=== PATIENT | male | born 1970 | race American Indian/Alaskan Native ===

== ENCOUNTER 2017-03-30 00:15 | Emergency (ER) | payer BC ==
[2017-03-30 00:34] VITALS: TEMP 98.9; O2SAT 98
[2017-03-30 01:09] LABS: BASO % 0.7 % (0.0-2.0); EOS # 0.1 K/uL (0.0-0.7); EOS % 2.1 % (0.0-4.0); HEMATOCRIT 41.8 % (35.0-51.0); LYMPH % 46.7 % (20.0-40.0); MEAN CELL VOLUME 87.7 fl (80.0-94.0); MEAN CORPUSCULAR HEMOGLOBIN 28.1 pg (27.0-31.0); MEAN CORPUSCULAR HGB CONC 32.1 g/dL (33.0-37.0); MEAN PLATELET VOLUME 8.6 fl (7.2-11.7); MONO # 0.7 K/uL (0.0-0.8); MONO % 10.2 % (0.0-10.0); NEUT # 2.6 K/uL (1.8-7.0); NEUT % 40.3 % (50.0-75.0); RED CELL DISTRIBUTION WIDTH 15.3 % (11.5-14.5); WHITE BLOOD COUNT 6.4 K/uL (4.8-10.8)
[2017-03-30 01:21] LABS: ALB/GLOB RATIO 1.3 (1.0-2.1); ALKALINE PHOSPHATASE 68 U/L (38-126); ALT/SGPT 63 U/L (21-72); AST/SGOT 39 U/L (17-59); BILIRUBIN,TOTAL 0.3 mg/dl (0.2-1.3); BLOOD UREA NITROGEN 21 mg/dl (9-20); CALCIUM 8.7 mg/dL (8.4-10.2); CARBON DIOXIDE 26 mmol/L (22-30); CHLORIDE 107 mmol/L (98-107); GFR AFRICAN-AMERICAN > 60; GLUCOSE,RANDOM 96 mg/dL (75-110); PARTIAL THROMBOPLASTIN TIME 38.4 Seconds (25.6-37.1); SODIUM 142 mmol/l (132-148); TOTAL PROTEIN 7.5 G/DL (6.3-8.2)
--- NOTE | 2017-03-30 01:54 | ED PDOC ---
HPI: Chest Pain Time Seen by Provider: 03/30/17 00:42 Chief Complaint (Nursing): Chest Pain Chief Complaint (Provider): Chest Pain History Per: Patient History/Exam Limitations: no limitations Onset/Duration Of Symptoms: Mins (x30 [employer] ME[employer]) Current Symptoms Are (Timing): Still Present Additional Complaint(s): Damian Hurtado is a 46 y/o male with a past medical history of asthma and HTN who presents to the ED complaining of chest pain and shortness of breath x30 minutes [employer]. Patient is currently also being treated for corneal abrasions. Patient states symptoms occurred while walking to his office from his vehicle. Patient reports feeling a sudden sensation of chest tightness. States symptoms lasted 30 minutes then resolved. Denies associated nausea, vomiting, or diaphoresis. PMD: Non-[facility] Provider Past Medical History Reviewed: Historical Data, Nursing Documentation, Vital Signs Vital Signs: Last Vital Signs Temp 98.9 F 03/30/17 00:32 Pulse 90 03/30/17 00:32 Resp 20 03/30/17 00:32 BP 195/120 H 03/30/17 00:32 Pulse Ox 98 03/30/17 02:41 - Medical History PMH: Asthma, HTN - Surgical History Surgical History: No Surg Hx - Family History Family History: States: Unknown Family Hx - Social History Current smoker - smoking cessation education provided: No Alcohol: None Drugs: Denies - Home Medications Home Medications: Ambulatory Orders Medication Instructions Recorded Methylprednisolone [Medrol Dose 4 mg PO DAILY #21 mg 08/04/14 Pack (21 tabs)] Naproxen 375 mg PO Q8 PRN #21 tab 01/27/15 diaZEpam [Valium] 5 mg PO Q8 PRN #10 tab 01/27/15 oxyCODONE/Acetaminophen [Percocet 1 ea PO Q6 PRN #8 tab 01/27/15 5/325 mg Tab] - Allergies Allergies/Adverse Reactions: Allergies Allergy/AdvReac Type Severity Reaction Status Date / Time No Known Allergies Allergy Verified 01/27/15 02:16 Review of Systems ROS Statement: Except As Marked, All Systems Reviewed And Found Negative Constitutional: Negative for: Sweats Cardiovascular: Positive for: Chest Pain Respiratory: Positive for: Shortness of Breath Gastrointestinal: Negative for: Nausea, Vomiting Physical Exam - Reviewed Nursing Documentation Reviewed: Yes Vital Signs Reviewed: Yes - Physical Exam Appears: Positive for: Well, Non-toxic, No Acute Distress Head Exam: Positive for: ATRAUMATIC, NORMAL INSPECTION, NORMOCEPHALIC Skin: Positive for: Normal Color, Warm, Dry Eye Exam: Positive for: Conjunctival injection (bilateral) Neck: Positive for: Normal, Painless ROM, Supple Cardiovascular/Chest: Positive for: Regular Rate, Rhythm. Negative for: Murmur Respiratory: Positive for: Normal Breath Sounds. Negative for: Respiratory Distress Gastrointestinal/Abdominal: Positive for: Normal Exam, Bowel Sounds, Soft. Negative for: Tenderness Back: Positive for: Normal Inspection. Negative for: L CVA Tenderness, R CVA Tenderness, Vertebral Tenderness Extremity: Positive for: Normal ROM. Negative for: Pedal Edema, Deformity Neurologic/Psych: Positive for: Alert, Oriented. Negative for: Motor/Sensory Deficits Comments: Patient is morbidly obese. - Laboratory Results Result Diagrams: 03/30/17 00:40 03/30/17 00:40 - ECG O2 Sat by Pulse Oximetry: 98 (RA) Pulse Ox Interpretation: Normal Medical Decision Making Medical Decision Making: Time: 00:43 Initial Impression: 46 y/o male with chest pain in setting of asthma and HTN Plan: --EKG --CMP --Drug screen, urine --Troponin I --CBC w/ differential --Partial thromboplastin time --Prothrombin time --X-Ray chest portable --Heplock insertion --Reevaluation Time: 2:38 Clinical Impression: Chest pain Plan: --Labs were reviewed and no clinically significant abnormalities were found. Chest X-Ray showed cardiomegaly. Given patient's obesity and history of HTN, patient was instructed that he would benefit from admission for chest pain. Patient decided to sign out against medical advice. --This patient is choosing to leave against medical advice. I have personally explained to the pt that choosing to do so may result in permanent bodily harm or . I have discussed at great length that without further evaluation and monitoring there may be unforeseen circumstances and/or deterioration causing permanent bodily harm or as a result of their choice. The pt verbalized these risks back to the physician in laymans terms. The pt is alert, oriented, and shows the mental capacity to make clear decisions regarding the pts health care at this time. The pt continues to wish to leave against medical advice. --In light of the pts decision to leave AMA, follow-up has been arranged and the pt is aware of the importance of following up as instructed. The pt has been advised that they should return to the ED immediately if they change their mind at any time, or if their condition begins to change or worsen in any way. Scribe Attestation: Documented by Husam Luna acting as a scribe for Italo Barrera MD. Scribe Attestation: All medical record entries made by the Scribe were at my direction and personally dictated by me. I have reviewed the chart and agree that the record accurately reflects my personal performance of the history, physical exam, medical decision making, and the department course for this patient. I have also personally directed, reviewed, and agree with the discharge instructions and disposition. Disposition - Clinical Impression Clinical Impression: Chest pain - Patient ED Disposition Is Patient to be Admitted: No Counseled Patient/Family Regarding: Studies Performed, Diagnosis, Need For Followup - Disposition Disposition: Against Medical Advice Disposition Time: 02:38 Condition: STABLE Forms: [employer] ([place]ayan)
[2017-03-30 02:49] VITALS: BP 167/89; PULSE 82; RESP 16
--- NOTE | 2017-03-30 09:42 | RAD ---
HISTORY: chest pain COMPARISON: No prior. FINDINGS: LUNGS: No active pulmonary disease. PLEURA: No significant pleural effusion identified, no pneumothorax apparent. CARDIOVASCULAR: Cardiomediastinal silhouette appears prominent, but this cannot be accurately assessed on an AP projection. OSSEOUS STRUCTURES: No significant abnormalities. VISUALIZED UPPER ABDOMEN: Normal. OTHER FINDINGS: None. IMPRESSION: No active disease.
--- NOTE | 2017-03-30 10:44 | CARD ---
APPROVED REPORT EKG Measurement Heart [id number] <Conclusion> Normal sinus rhythm Possible Left atrial enlargement Septal infarct, age undetermined ST & T wave abnormality, consider inferolateral ischemia Abnormal ECG
== END 2017-03-30 02:57 | disposition left against medical advice (07) ==
LOC: H.ER 00:15
DX: R07.89 Other chest pain (principal); E66.9 Obesity, unspecified; I10 Essential (primary) hypertension; J45.909 Unspecified asthma, uncomplicated